=== PATIENT | male | born 1995 | race Caucasian/White ===

== ENCOUNTER 2016-08-21 07:17 | Emergency (ER) | payer SELFPAY ==
[~2016-08-21] VITALS: Ht 165.1 cm; Wt 97.7 kg
[2016-08-21] MEDS ORDERED: IBUPROFEN 600 MG TABLET PO ONE (08:30)
[2016-08-21 10:08] VITALS: BP 140/90
== END 2016-08-21 10:45 | disposition home or self-care (01) ==
LOC: EMS 07:23
DX: S13.4XXA Sprain of ligaments of cervical spine, initial encounter (principal); V43.62XA Car passenger injured in collision with other type car in traffic accident, initial encounter; Y93.89 Activity, other specified; Y92.89 Other specified places as the place of occurrence of the external cause; Y99.8 Other external cause status
CPT/HCPCS: 70450; 72125; 99284